=== PATIENT | female | born 1965 | race African-American/Black ===

== ENCOUNTER 2018-06-09 08:00 | Outpatient (CLI) | payer BC ==
[2018-06-09] MEDS ORDERED: CHLOR (13:17)
[2018-06-09] MEDS ORDERED: ATENOL (13:17)
[2018-06-09] MEDS ORDERED: LEVOTHYROXINE125 MCG PO (13:18)
[2018-06-09] MEDS ORDERED: PRAVASTATIN SOD10 MG PO (13:18)
[2018-06-09] MEDS ORDERED: METFORMIN HCL500 M1 PO (13:18)
[2018-06-09] MEDS ORDERED: TRULICITY1.5 MG/0.5 SC (13:18)
[2018-06-09 13:59] LABS: BASOPHILS 0.3 % (0-2); EOSINOPHILS 2.8 % (0-7); HEMATOCRIT 44.1 % (36.0-48.0); HEMOGLOBIN 14.5 g/dL (12-16); IMMATURE GRANULOCYTES 0.1 % (0-5); LYMPHOCYTES 42.4 % (15-50); MCH 28.5 pg (26.0-34.0); MCHC 32.9 g/dL (31.0-37.0); MCV 86.8 fL (80.0-100.0); MEAN PLATELET VOLUME 11.8 fL (7.4-10.4); MONOCYTES 8.1 % (2-11); NEUTROPHILS 46.3 % (40-80); PLATELET COUNT 213 10x3/uL (130-400); RBC 5.08 10x6/uL (4.00-5.40); RDW 12.6 % (11.5-14.5); WBC 6.9 10x3/uL (4.8-10.8)
[2018-06-09 14:23] LABS: CALC OSMOLALITY 277 mosm/kg (275-300); CALCIUM 10.1 mg/dL (8.5-10.1); CARBON DIOXIDE 33.4 mmol/L (21.0-32.0); CHLORIDE - SERUM 100 mmol/L (98-107); CREATININE - SERUM 0.7 mg/dL (0.6-1.3); GLUCOSE 94 mg/dL (74-106); SODIUM 140 mmol/L (136-145); UREA NITROGEN 11 mg/dL (7-18); eGFR NON AFRICAN AMERICAN > 90 mL/min (90-120)
[2018-06-09 14:40] LABS: POTASSIUM - SERUM 2.9 mmol/L (3.5-5.1)
[2018-06-13 18:36] VITALS: BMI 34.4
== END 2018-06-09 08:01 | disposition home or self-care (01) ==
LOC: D.OPS 08:00 → D.PAN 06-11 08:30 → D.OPS 06-11 08:30 → EDSTATUS 06-11 08:30 → D.OPS 06-11 09:00
PROVIDERS: ATTEND Obstetrics & Gynecology
DX: N95.0 Postmenopausal bleeding (principal)

== ENCOUNTER 2018-06-13 14:57 | Inpatient (IN) | payer BC ==
[~2018-06-13] VITALS: Ht 160 cm; Wt 88.2 kg
[2018-06-13 09:39] VITALS: BP 119/73; BMI 34.4
[2018-06-13 09:47] LABS: HCG URINE NEGATIVE (NEGATIVE)
[~2018-06-13 14:57] MED LIST: ATENOL; CHLOR; LEVOTHYROXINE125 MCG PO; METFORMIN HCL500 M1 PO; PRAVASTATIN SOD10 MG PO; TRULICITY1.5 MG/0.5 SC
[2018-06-13 15:32] VITALS: BP 146/74
--- NOTE | 2018-06-13 15:45 | NUR ---
RECEIVED FROM RECOVERY ROOM VIA GURАННА, PT AWAKE AND ALERT AND IS ABLE TO MOVE SELF TO ROOM BED WITH NO ASSISTANCE NEEDED. POSITION TO RIGHT TILT FOR COMFORT, IVORY CATH TO BEDSIDE DRAIN WITH 200ML CLEAR URINE NOTED. IV TO LEFT AC INFUSING LR PER ORDERS. ABDOMEN SOFT TO TOUCH, VAG PACK IN PLACE WITH NO BLEEDING NOTED. SCD'S BILAT AND PLACED ON PUMP. DENIES NAUSEA AND RATES PAIN AT 2/10 AT THIS TIME. SIDE RAILS UP X 2 WITH CALL LIGHT IN REACH.
--- NOTE | 2018-06-13 16:00 | NUR ---
IV ALARMING DUE TO PT POSITION, TUBING ADJUSTED. EXPLAINED TO PT THAT PAIN MED AVAILABLE WHEN NEEDED, SHE RATES PAIN AT 4-5/10 AND REQUEST SOMETHING NOW. MED GIVEN SCANNED TO EMAR. ALSO PROVIDED WITH SMALL LEMON HOLY CROSS SODA AND JELLO.
--- NOTE | 2018-06-13 16:45 | NUR ---
PAIN REASSESSMENT, PT RATES AT 210, LIGHTS TURNED OFF PER REQUEST. SIDE RAILS UP X 2 WITH CALL LIGHT IN REACH.
--- NOTE | 2018-06-13 17:30 | NUR ---
PT TAKEN JELLO AND CUP OF CHICKEN BROTH PER REQUEST. RATES PAIN AT 2/10 AND IS MOVING SELF AROUND IN BED, WITH NO ASSISTANCE NEEDED. IVORY CATH WITH 150ML CLEAR URINE. SIDE RAILS UP X 2 WITH PHONE AND CALL LIGHT IN REACH.
[2018-06-13 18:36] VITALS: BP 134/63; Ht 160 cm; Wt 88.2 kg
--- NOTE | 2018-06-13 19:05 | NUR ---
INTO ROOM TO CHECK IV WITH IS ALARMING. PT. AWAKE AND ORIENTED. RELATES THAT SHE IS THIRSTY. INFORMED OF CHOICES AVAILABLE AND PT. REQUESTED CRANBERRY AND ORANGE JUICE MIXED. SAME GIVEN.
[2018-06-13 19:11] VITALS: BP 109/62
--- NOTE | 2018-06-13 19:11 | NUR ---
PT. AWAKENED FOR VITAL SIGNS AND ASSESSMENT. PT. CURRENTLY WITH CPAP ON WITH HER MACHINE BROUGHT FROM HOME. IV OF NS AT 125CC/HR . IV SITE IN LT AC WITHOUT EDEMA OR REDNESS. INCISION NOTED AT UMBILICUS WITHOUT DRAINAGE. NO VAGINAL DRAINAGE NOTED. SCDS ON AND FUNCTIONAL. IVROY PATENT AND DRAINING WITH 125CC IN URINE METER.
--- NOTE | 2018-06-13 19:30 | NUR ---
IV SALINE LOCKED PER ORDER DR. GONZALEZ. SALINE LOCK FLUSHES WITH EASE.
--- NOTE | 2018-06-13 20:26 | NUR ---
pt. c/o pain of 2 of 10 on pain scale. Percocet given as ordered. Offered pt. popsicle and pt. agreeable.
--- NOTE | 2018-06-13 20:52 | NUR ---
PT. CHANGED POSITION FROM BACK TO LT SIDE WITHOUT ASSISTANCE FROM NURSE. REMINDED PT. TO TRY AND CHANGE POSITIONS EVERY 2 HOURS. PT. STATES UNDERSTANDING. SPOUSE IN ROOM WITH PTKenya MENENDEZ AND DRAINING. SCDS ON AND FUNCTIONAL.
--- NOTE | 2018-06-13 21:17 | NUR ---
PT. LYING ON LT SIDE. SLIGHTLY DROWSY. ROUTINE MEDS GIVEN. REPORTS PAIN IS 0 OF 10.
--- NOTE | 2018-06-13 21:30 | NUR ---
PT. TALKING ABOUT HER WORRIES AT HOME THAT SHE WILL NOT BE ABLE TO DO IE: GROCERY SHOPPING, LAUNDRY ETC AND RELATES THAT HER SONS AND SPOUSE ARE NOT ATTENTIVE TOO. ENCOURAGED PT. TO RESOURCE HER SPIRITISM FAMILY WHEN THEY ASK WHAT THEY CAN DO. PT. AGREEABLE THAT SHE WILL DO THAT. PT. TALKATIVE.
--- NOTE | 2018-06-13 21:51 | NUR ---
INCENTIVE SPIROMETER INTO PT. AND PT. USED AND ABLE TO ACHIEVE UP TO 2000 X2.
--- NOTE | 2018-06-13 22:56 | NUR ---
VISITORS AT BEDSIDE.
[2018-06-13 23:00] VITALS: BP 125/64
--- NOTE | 2018-06-13 23:00 | NUR ---
VISITOR AT BEDSIDE. VITAL SIGNS OBTAINED. IVORY PATENT AND DRAINING. 125CC IN URINE METER. PT. COMMENTING THAT HER MOUTH IS REALLY DRY. SCDS ON AND FUNCTIONAL. PT. MOVING ABOUT IN BED AD IRAM. STATES SHE IS HUNGRY AND READY TO EAT IN THE AM.
--- NOTE | 2018-06-13 23:13 | NUR ---
PT. STATES THAT SHE DESIRES PAIN MED WHEN DUE SO SHE CAN SLEEP. PT. AWARE FROM EARLIER INFORMATION FROM THIS NURSE THAT SHE HAS AMBIEN ORDERED BUT PT. DECLINED. JELLO, JUICE AND WATER SERVED TO PT. PT. STATES THAT SHE TOLD HER SPOUSE AND CHILDREN TO GO HOME SO SHE COULD REST.
--- NOTE | 2018-06-14 00:20 | NUR ---
INTO PT. ROOM TO GIVE PERCOCET THAT PT. HAD REQUESTED "WHEN DUE". PT. WITH CPAP ON AND WITH EYES CLOSED AND RESPIRATIONS UNLABORED. DOES NOT AWAKEN TO THIS NURSE IN ROOM. WILL HOLD PERCOCET AT THIS TIME UNTIL PT. AWAKENS.
--- NOTE | 2018-06-14 01:30 | NUR ---
PT. LYING ON RT SIDE WITH EYES CLOSED AND RESPIRATIONS UNLABORED. IVORY CATH. NOTED WITH 250CC IN FLOW METER. PT. DOES NOT AROUSE TO THIS NURSE IN ROOM. SCDS ON AND FUNCTIONAL.
[2018-06-14 03:24] VITALS: BP 101/59
--- NOTE | 2018-06-14 03:24 | NUR ---
PT. AWAKE AT PRESENT. DENIES ANY PAIN. ENCOURAGED TO DRINK FLUIDS WHILE AWAKE. AGREEABLE. 100CC NOTED IN URINE METER. PT. ASKING WHEN DR. GONZALEZ WILL BE IN. STATES DESIRE TO HAVE VAGINAL PACKING REMOVED AND INQUIRED IF WOULD BE PAINFUL. INFORMED PT. WOULD NOT BE SAME PULLING PACKING FROM ABD. WOUND WHICH PT. STATED THAT SHE WAS FAMILIAR WITH. SCDS ON AND FUNCTIONAL. CALL LIGHT WITHIN REACH. SIDE RAILS UP X2.
--- NOTE | 2018-06-14 04:14 | NUR ---
SCHEDULED TORADOL GIVEN PER ORDER. PT DENIES PAIN AND NEEDS. ICE WATER PROVIDED. SCD'S ON BLE. BED IN LOW POSITION WITH UPPER SIDE RAILS RAISED X2. CALL LIGHT AND PHONE WITHIN REACH. WILL CONTINUE TO MONITOR AND ASSIST PRN.
--- NOTE | 2018-06-14 05:15 | NUR ---
LYING ON BACK WITH CPAP IN PLACE. EYES CLOSED AND RESPIRATIONS UNLABORED.
--- NOTE | 2018-06-14 05:30 | NUR ---
PT. LOOKING AT PHONE. DENIES ANY PAIN AT THIS TIME. SCDS ON AND FUNCTIONAL. IVORY PATENT AND DRAINING.
--- NOTE | 2018-06-14 05:45 | NUR ---
DR. GONZALEZ CALLED UNIT AND INFORMED OF PT'S OUTPUT LAST 4 HOURS.
[2018-06-14 06:00] VITALS: BP 112/58
--- NOTE | 2018-06-14 06:00 | NUR ---
PT. AWAKE AT PRESENT. ASKING IF SHE WILL BE ABLE TO HAVE REGULAR FOOD BEFORE SHE DISCHARGES. INFORMED PT THAT SHE LIKELY WOULD AND THAT DR. GONZALEZ SAID THAT HE WOULD BE IN TO SEE HER THIS AM.
--- NOTE | 2018-06-14 06:15 | NUR ---
PT. REPORTS PAIN OF 4 OF 10 ON PAIN SCALE. STATES IT FEELS LIKE GAS. ICE WATER PROVIDED AND PAIN MED GIVEN ORDERED.
--- NOTE | 2018-06-14 07:55 | NUR ---
TO ROOM TO ANSWER CALL LIGHT. PT UP IN BED WITH BREAKFAST TRAY, REQUEST WASH CLOTH TO WASH HER HANDS, WARM WET CLOTH GIVEN TO PT. PT DENIES ANY FURTHER NEEDS AT THIS TIME. ICE WATER CUP IS FULL.
--- NOTE | 2018-06-14 08:25 | NUR ---
Dr. Monaco to pt's room to speak with pt.
--- NOTE | 2018-06-14 08:40 | NUR ---
AM assessment completed, see flowsheet. Pt has 3 lap incisions, umbilical incision noted to have scant amount of dried blood in it. Abdomen palpates soft, pt reports no nausea at this time. Pt reports she has already passed gas. Medication adm record reviewed with patient. See emar for all meds adm by this RN. SR up x2, call light and phone within reach.
[2018-06-14 08:43] VITALS: BP 110/56
--- NOTE | 2018-06-14 08:53 | OP ---
PATIENT NAME: KAIT SOL MEDICAL RECORD: [id number] :61 LOCATION:[id number] ADMISSION DATE:06/13/18 SURGEON: LAVON GONZALEZ MD DATE OF OPERATION: 06/13/2018 PREOPERATIVE DIAGNOSES: 1. Persistent postmenopausal bleeding. 2. Cystocele. 3. Dyspareunia. POSTOPERATIVE DIAGNOSES: 1. Persistent postmenopausal bleeding. 2. Cystocele. 3. Dyspareunia. PROCEDURES: 1. Total laparoscopic hysterectomy with bilateral salpingo-oophorectomy. 2. Anterior colporrhaphy. SURGEON: Lavon Gonzalez MD BOILERMAKER: Adolfo Pond. ANESTHESIOLOGIST: Dr. Cummins ANESTHETIC: General. FINDINGS: Uterus, tubes, and ovaries unremarkable. The vaginal mucosa is pale. Cervix is unremarkable. First to second degree cystocele present. At the time of cystoscopy, unremarkable mucosa, both ureteral orifices with good efflux of urine. SPECIMENS REMOVED: Uterus with tubes and ovaries bilaterally. SPECIMEN DISPOSITION: Pathology. ESTIMATED BLOOD LOSS: Less than or equal to 200 cc. FLUIDS: 1900 cc lactated Ringer's. URINE OUTPUT: 625 cc of clear urine. DRAINS: Aopbl-ly-tdlshcz with vaginal packing. COMPLICATIONS: None. INDICATIONS: The patient is a 53-year-old female with persistent postmenopausal bleeding. The patient has anterior defect. The patient was consented for total laparoscopic hysterectomy, bilateral salpingo-oophorectomy and anterior colporrhaphy. DESCRIPTION OF PROCEDURE: After informed consent was assured, the patient was taken to the operating room where anesthetic was obtained and she was placed in [facility]. The patient was then prepped and draped in the usual sterile fashion. The patient has a speculum introduced and the uterine manipulator now OPERATIVE REPORT [id number] KAIT SOL placed. Attention was directed to the abdomen where an incision was made and a 5-mm trocar inserted. Pneumoperitoneum was developed and the patient was in Trendelenburg position. Accessory ports were placed in the right and left lower quadrants. Through the right lower quadrant port, Thunderbeat coagulation cutter was inserted. The right tube and ovary were elevated and the infundibulopelvic ligament compressed, coagulated, and . This dissection was carried down underneath the ovary, across the round ligament, and anterior leaf of the broad ligament was opened. The bladder flap was developed across the midline. Posterior leaf was now fully dissected free of the vascular bundle of the right side. The vessels of the right are now compressed, coagulated, and at the level of the internal os. Attention was now directed to the left side. The left ovary was now elevated and in a like manner the tissues compressed, coagulated, and across the infundibulopelvic ligament, round ligaments and broad ligament. The bladder flap was now completely developed. Posteriorly, the tissues dissected free the vascular bundle and the tissue was now compressed, coagulated, and . Dissection of the uterus from the vaginal cuff begins at the 5 o'clock position and was taken up to the 9 o'clock position. The dissection concludes from the right side from the 3-9 o'clock position and 3-6 o'clock positions. The legs were positioned for the vaginal close. The weighted speculum was introduced in the vagina and the cervix, and the uterus, tubes and ovaries were removed. The cuff was now closed in an anterior to posterior fashion with interrupted Vicryl stitch. After this had been completed, Allis clamp was placed approximately 1.5 cm from the urethral meatus. Another clamp was applied at the apex of the anterior defect. The anterior compartment was injected with 0.5% lidocaine solution with epinephrine. The space was opened with a #10 blade and the dermis mobilized off of the underlying endopelvic fascia. Imbricating Vicryl stitches were now used to repair the anterior compartment defect. After single layer close of the Vicryl, mucosa was trimmed and closed with a running stitch. Vaginal packing was placed after cystoscopy was performed. The second look with the laparoscope revealed adequate hemostasis. The pelvis was copiously irrigated and irrigant removed. Accessory trocars were removed under direct visualization and then primary trocar removed. Subcuticular stitch was used to reapproximate the skin and Dermabond was applied. Sponge, lap, and needle counts correct times 2. TRANSINT:[id number] Voice Confirmation ID: [id number] DOCUMENT ID: [id number] LAVON GONZALEZ MD at 0853 CC: [id number] DICTATION DATE: 06/13/18 1425 ONCOLOGY REP: 06/13/18 [id number] ADM IN [facility] [address] [id number]
--- NOTE | 2018-06-14 08:55 | NUR ---
Dr. Monaco on unit, and notified of pt's HR 49, 51 while lying in bed before sitting up. Will recheck HR.
--- NOTE | 2018-06-14 09:38 | NUR ---
Dr. Monaco at [facility]. HR reported to . Pt continues to deny SOB, nausea, dizziness or difficulty breathing. No new orders received.
--- NOTE | 2018-06-14 12:15 | NUR ---
To pt's room to remove crockett and vag packing. Crockett cath removed with tip intact, total of 700 ml's dark yellow urine noted. Vaginal packing removed slowly with dark brown/dark red, dry packing noted when removal began. At tail end of packing, watery/serous fluid noted with no foul odor, and no bright red blood noted. Pt bernabe well. Pericare done with warm wet washcloths, and peritowel changed. Pt wishes to eat lunch at this time. SR up x2, call light and phone within reach.
--- NOTE | 2018-06-14 14:35 | NUR ---
Pt requests to take a shower, clean linens provided, along with peripanties, and peripads. Baby shampoo/body wash provided at pt's request. Pt sitting on toilet, attempting to void, [place] hat provided. Warm wet washcloths proivided for pericare. Pt denies all other needs at this time. Call light within reach.
--- NOTE | 2018-06-14 15:00 | NUR ---
Pt out of shower, states "I was unable to void". Pt has large ice water to drink. Pt dressed in own clothing, preparing for discharge. SR up x 2, call light and phone within reach. Pt denies all other needs at this time.
--- NOTE | 2018-06-14 15:30 | NUR ---
Nghia Prasad, RN to room, saline lock dc'd with cath intact. Pt bernabe well. SRup x 2, call light and phone within reach. Pt denies all other needs.
[2018-06-14] MEDS ORDERED: TORADOL10 MG PO (15:44)
[2018-06-14] MEDS ORDERED: CELEXA20 MG PO (15:45)
[2018-06-14] MEDS ORDERED: PERCOCET 7.5/321 TAB PO (16:29)
--- NOTE | 2018-06-14 16:55 | NUR ---
Report given to 7 p shift.
--- NOTE | 2018-06-14 17:00 | NUR ---
Regular supper tray served by dietary. Medication adm record reviewed with patient, pt stating "I usually take my nighttime glucophage at around 9 pm, so I will wait to take it then". Pt requests to have bladder scanned, due to she has not voided post crockett cath removed. Bladder scanned x 2, with 129 ml's noted on scanner. Pt wishes to drink more for now, and will attempt to void by 6 pm. Large cranberry juice and sprite served to pt at her request.
--- NOTE | 2018-06-14 17:30 | NUR ---
Report called to Dr. Monaco by Nghia Prasad, RN and Informed MD time of crockett removed, and pt unable to void, with 129 ml's noted with bladder scanner. Telephone order received to drain bladder with in and out catheter, and then give 3-4 hours to void after cath, and to administer Urecholine one po q 8 hrs.
--- NOTE | 2018-06-14 17:40 | NUR ---
supervisor net making notified of needing Urecholine tablet to administer to Joselo.
--- NOTE | 2018-06-14 18:25 | NUR ---
In and out cath done using sterile technique, with 550 ml's yellow urine out. Urine specimen collected in case ordered by . Peripad placed and pt dressed in own clothing, plan of care discussed with pt. Pt agrees with plan of care. Sr up x 2, call light and phone within reach.
--- NOTE | 2018-06-14 18:30 | NUR ---
edson Markhamhousehold cook calls to unit and states "The pharmacist said we do not carry Urecholine. Dr. Monaco notified by Nghia Prasad RN of this, with new order received to administer Reglan 10 mg one po Q6 hrs.
--- NOTE | 2018-06-14 19:52 | NUR ---
pt given reglan 10mg po.
--- NOTE | 2018-06-14 20:26 | NUR ---
SPOKE WITH DR. GONZALEZ, INFORMED MD THAT PT HAD BEEN I&O CATHED BY DAY SHIFT AT 1825 PER REPORT WITH OUTPUT OF 550 MLS. ORDER REC'D THAT IF PT HASN'T VOIDED BY [address] IVORY CATH.
[2018-06-14 21:00] VITALS: BP 116/55
--- NOTE | 2018-06-14 21:11 | NUR ---
PT. LYING ON BED DRESSED IN HER OWN CLOTHES. BREATH SOUNDS CLEAR AND BOWEL SOUNDS HYPOACTIVE. DENIES ANY PAIN IN LEGS AND NO REDNESS NOTED. PT. REPORTS THAT SHE FEELS SHE HAS GAS. STATES SHE HASN'T WALKED MUCH TODAY AND IS AWARE THAT SHE NEEDS TO. DENIES PAIN AT THIS TIME. PT. STATES SHE HAS BEEN UNABLE TO VOID BUT DESIRES TO SO SHE CAN GO HOME. INFORMED OF POC THAT IF UNABLE TO VOID BY 10:30 PM THAT CATH. WOULD BE REINSERTED UNTIL AM AND THEN WOULD BE TAKEN OUT AGAIN. PT. STATES UNDERSTANDING. ABD INCISION AT UMBILICUS CLEAN AND WITHOUT DRAINAGE. NO VAGINAL DISCHARGE NOTED. PT. STATES SHE IS GETTING UP TO WALK.
--- NOTE | 2018-06-14 21:18 | NUR ---
PT. REPORTS THAT SHE HAS NOT DRANK MUCH SINCE LAST TIME CATH. WAS DONE. ICE WATER PROVIDED TO PT. PT. UP TO BATHROOM TO ATTEMPT TO VOID. STATES SHE FEELS ALMOST LIKE URINE IS COMING AND THEN WILL NOT.
--- NOTE | 2018-06-14 21:25 | NUR ---
PT. WALKING IN HALLWAY WITH MALE. GAIT STEADY.
--- NOTE | 2018-06-14 21:36 | NUR ---
house supervisior notified of pt need for simethicone 80mg po.
--- NOTE | 2018-06-14 22:01 | NUR ---
simethicone 80 mg given po for releif of gas. pt alert and laying in bed.
--- NOTE | 2018-06-14 22:32 | NUR ---
PT. REQUESTING IVORY BE INSERTED. STATES SHE HAS ATTEMPTED TO VOID AND IS UNABLE BUT FEELS HER BLADDER IS FULL. ASKED FOR GOWN TO CHANGE OUT OF HER STREET CLOTHES. SAME DONE.
--- NOTE | 2018-06-14 22:40 | NUR ---
16 F IVORY CATH.INSERTED PER HOSPITAL POLICY WITH IMMED. RETURN OF 500CC NOTED. PT. REPORTS FEELING OF RELIEF WHEN BLADDER EMPTIED. PT. SITTING UP EATING FOOD BROUGHT FROM OUTSIDE. SCDS ON AND CONNECTED TO PUMP AND FUNCTIONAL.
--- NOTE | 2018-06-14 22:43 | NUR ---
TORADOL GIVEN ORDERED. DENIES PAIN AT THIS TIME.
[2018-06-14 23:30] VITALS: BP 114/65
--- NOTE | 2018-06-14 23:30 | NUR ---
v/s obtained at this time. temp 98.0(ax), hr-62, resp-24 and unlabored. pt laying in bed with lights out. pt has no c/o at this time.
--- NOTE | 2018-06-15 00:20 | NUR ---
PT. LYING ON BACK WITH EYES CLOSED. RESPIRATIONS UNLABORED. IVORY PATENT AND DRAINING. SCDS ON AND FUNCTIONAL. SIDE RAILS UP X 2.
--- NOTE | 2018-06-15 02:10 | NUR ---
INTO ROOM FOR CHECK ON PT. PT. AWAKE AT PRESENT. REQUESTING SIMETHICONE FOR GAS. INFORMED WOULD REQUEST FROM STRAND AND BINDER CONTROLLER. IVORY PATENT AND DRAINING. REPOSITIONED SELF TO RT SIDE.
--- NOTE | 2018-06-15 02:13 | NUR ---
GAME DESIGNER/CREATIVE DIRECTOR CALLED FOR MASONE.
--- NOTE | 2018-06-15 02:19 | NUR ---
REGLAN GIVEN ORDERED . INFORMED EMERGENCY ROOM CLERK WILL BRING LORI. PT. CURRENTLY LOOKING ON PHONE.
[2018-06-15 04:30] VITALS: BP 113/54
--- NOTE | 2018-06-15 04:30 | NUR ---
PT LAYING IN BED ON LEFT SIDE. PT AROUSED EASILY WHEN DOOR OPENED. V/S OBTAINED. TEMP 97.9(AX), RESP-18, HR-77, TORADOL 10MG GIVEN PO. PT DENIES ANY NEEDS OR CONCERNS AT PRESENT TIME.
--- NOTE | 2018-06-15 05:24 | NUR ---
LYING ON LT SIDE WITH CPAP IN PLACE. RESPIRATIONS UNLABORED.
--- NOTE | 2018-06-15 06:14 | NUR ---
PT. WALKING ABOUT IN ROOM. EMPTIED IVORY WITH 1500CC. DENIES ANY NEEDS. GAIT STEADY.
--- NOTE | 2018-06-15 08:00 | NUR ---
AM ASSESSMENT COMPLETED, SEE FLOWSHEET. ABDOMEN PALPATES SOFT, PT WITH 3 LAP INCISIONS, C/D/I. PT HAS IVORY CATH IN PLACE DRAINING DARK YELLOW URINE, WITH 130 ML'S NOTED IN UROMETER. PT STATES SHE IS PASSING GAS. PT DENIES NAUSEA, DIZZINESS, SOB, OR DIFFICULTY BREATHING. REGULAR BREAKFAST TRAY SERVED BY DIETARY. PT DENIES NEEDING ANYTHING ELSE FOR BREAKFAST OR TO DRINK. SR UP X2, CALL LIGHT AND PHONE WITHIN REACH.
[2018-06-15 08:09] VITALS: BP 121/60
--- NOTE | 2018-06-15 08:10 | NUR ---
SEE EMAR FOR MEDS ADM BY THIS RN.
--- NOTE | 2018-06-15 09:20 | NUR ---
DR. GONZALEZ CALLS TO UNIT, STATES HE WILL BE BY SHORTLY FOR ROUNDS.
--- NOTE | 2018-06-15 10:15 | NUR ---
DR. GONZALEZ ON UNIT, ROUNDS MADE.
--- NOTE | 2018-06-15 11:30 | NUR ---
TO PT'S ROOM TO GO OVER DISCHARGE PAPERS, AND TO SWITCH IVORY BAG TO LEG BAG. PT WISHES TO TAKE A SHOWER FIRST. IVORY BAG EMPTIED WITH 400 MLS DARK YELLOW URINE OUT. CLEAN LINENS PROVIDED. PT DENIES ALL OTHER NEEDS AT THIS TIME.
--- NOTE | 2018-06-15 12:20 | NUR ---
PT CALLS OUT GLOBAL PROCESS OWNER LIGHT AND STATES "I AM READY TO GO HOME". TO PT'S ROOM, PT HAS CHANGED OUT IVORY BAG TO LEG BAG, CORRECTLY DONE. EXTRA IVORY BAG SENT HOME WITH PATIENT. DISCHARGE INSTRUCTIONS EXPLAINED TO PT, WITH COPIES PROVIDED, ALONG WITH APPT CARD, HOME MED REC, AND EDUCATIONAL INFORMATION SHEETS, AND PRESCRIPTIONS FOR MACROBID, AND UROCHOLINE. PT'S TOOK PERCOCET, CELEXA, AND TORADOL SCRIPTS YESTERDAY TO GET THEM FILLED, IN ANTICIPATION OF D/C YESTERDAY. DR. GONZALEZ WANTS TO SEE PT IN CLINIC AFTER TAKING THE UROCHOLINE FOR 24 HOURS. PT AGREES TO DISCHARGE INSTRUCTIONS. DENIES QUESTIONS. REGULAR LUNCH TRAY SERVED BY DIETARY. PT WANTS TO EAT BEFORE SHE DISCHARGES HOME. PT IS DRESSED AND READY FOR D/C.
--- NOTE | 2018-06-15 12:35 | NUR ---
PT TAKEN OUT IN STABLE CONDITION BY WHEELCHAIR TO PRIVATE CAR, WITH FRIEND DRIVING.
--- NOTE | 2018-06-16 03:49 | DS ---
PATIENT:KAIT SOL :61 MEDICAL RECORD: [id number] DISCHARGE SUMMARY ADMISSION DATE: 06/13/18 DISCHARGE DATE: 06/15/18 DATE OF ADMISSION: 06/13/2018 DATE OF DISCHARGE: 06/15/2018 ADMISSION DIAGNOSES: 1. Persistent postmenopausal bleeding. 2. Cystocele. DISCHARGE DIAGNOSES: 1. Persistent postmenopausal bleeding. 2. Cystocele. 3. Urinary retention, status post total laparoscopic hysterectomy-bilateral salpingo-oophorectomy with anterior repair. ATTENDING: Contreras Gonzalez MD PROCEDURES: 1. Total laparoscopic hysterectomy. 2. Bilateral salpingo-oophorectomy. 3. Anterior colporrhaphy. HISTORY OF PRESENT ILLNESS AND INDICATIONS FOR PROCEDURE: See the H&P in the chart. SUMMARY OF HOSPITALIZATION: The patient was admitted and underwent the procedure without difficulty. By postop day #1, she was tolerating a regular diet and having voiding difficulties. The patient had 2 postvoid residuals in excess of 100 cc over a 4-hour period of time for each. The patient has been on Reglan overnight; however, chooses to go home with a leg bag until Urecholine can to be taken for 24 hours. DISCHARGE MEDICATIONS: Will include Macrobid, Urecholine, Percocet, and Toradol. The patient will follow up in the clinic for Falk removal. Standard postoperative precautions have been reviewed. TRANSINT:[id number] Voice Confirmation ID: [id number] DOCUMENT ID: [id number] CONTRERAS GONZALEZ MD at 0349 CC: [id number] DICTATION DATE: 06/15/18 1031 HOTEL CONCIERGE: 06/16/18 0031 DIS IN 06/15/18 [facility] [address] [place] [address]
== END 2018-06-15 12:35 | disposition home or self-care (01) | DRG 743 ==
LOC: D.OPS 14:57 → D.LD 14:58 → D.OPS 23:46 → D.LD 23:46
PROVIDERS: ADMIT Obstetrics & Gynecology; ATTEND Obstetrics & Gynecology
PROC: 0UT9FZZ Resection of Uterus, Via Natural or Artificial Opening With Percutaneous Endoscopic Assistance (ICD-10-PCS; principal; 2018-06-13 10:45)
PROC: 0UT7FZZ Resection of Bilateral Fallopian Tubes, Via Natural or Artificial Opening With Percutaneous Endoscopic Assistance (ICD-10-PCS; 2018-06-13 10:45)
PROC: 0UT2FZZ Resection of Bilateral Ovaries, Via Natural or Artificial Opening With Percutaneous Endoscopic Assistance (ICD-10-PCS; 2018-06-13 10:45)
PROC: 0JQC3ZZ Repair Pelvic Region Subcutaneous Tissue and Fascia, Percutaneous Approach (ICD-10-PCS; 2018-06-13 10:45)
DX: N95.0 Postmenopausal bleeding (principal); N81.10 Cystocele, unspecified; N94.10 Unspecified dyspareunia; R33.8 Other retention of urine

== ENCOUNTER 2018-06-24 19:08 | Emergency (ER) | payer BC ==
[~2018-06-24] VITALS: Ht 160 cm; Wt 86.4 kg
[~2018-06-24 19:08] MED LIST changes: +CELEXA20 MG PO; +PERCOCET 7.5/321 TAB PO; +TORADOL10 MG PO
== END 2018-06-24 20:40 | disposition home or self-care (01) ==
LOC: D.ER 19:08
DX: R33.8 Other retention of urine (principal)

== ENCOUNTER 2018-07-01 08:27 | Day surgery (SDC) | payer BC ==
[~2018-07-01] VITALS: Ht 160 cm; Wt 86.2 kg
[~2018-07-01 08:27] MED LIST changes: +MACROBID100 MG PO; +OXYBUTYNIN CHLOR5 M1; +URECHOLINE25 MG
[2018-07-01 08:56] LABS: HEMATOCRIT 40.2 % (36.0-48.0); HEMOGLOBIN 13.2 g/dL (12-16); MCH 28.4 pg (26.0-34.0); MCHC 32.8 g/dL (31.0-37.0); MCV 86.5 fL (80.0-100.0); MEAN PLATELET VOLUME 11.5 fL (7.4-10.4); RBC 4.65 10x6/uL (4.00-5.40); RDW 12.8 % (11.5-14.5); WBC 6.6 10x3/uL (4.8-10.8)
[2018-07-01 09:03] LABS: CALC OSMOLALITY 286 mosm/kg (275-300); CALCIUM 9.8 mg/dL (8.5-10.1); CARBON DIOXIDE 30.8 mmol/L (21.0-32.0); CHLORIDE - SERUM 103 mmol/L (98-107); CREATININE - SERUM 0.7 mg/dL (0.6-1.3); POTASSIUM - SERUM 3.1 mmol/L (3.5-5.1); SODIUM 143 mmol/L (136-145); UREA NITROGEN 10 mg/dL (7-18); eGFR NON AFRICAN AMERICAN > 90 mL/min (90-120)
[2018-07-01 09:04] LABS: GLUCOSE 160 mg/dL (74-106)
[2018-07-01] MEDS ORDERED: GLIMEPIRIDE1 MG PO (10:33)
[2018-07-01 10:37] VITALS: BP 138/92; Ht 160 cm; Wt 86.2 kg
--- NOTE | 2018-07-01 12:51 | OP ---
PATIENT NAME: KAIT SOL MEDICAL RECORD: [id number] :61 LOCATION:D.OPS ADMISSION DATE: SURGEON: EMMANUEL PORTER MD DATE OF OPERATION: 07/01/2018 SURGEON: Emmanuel Porter MD ANESTHESIA: TIVA By Cristian Mathias CRNA DIAGNOSES: Urinary retention post-hysterectomy and cystocele repair. FINDINGS: Normal urethra without obstruction. Single ureteral orifices bilaterally. Diffuse bladder inflammation, but no bladder tumors are seen. PROCEDURE: Cystoscopy. BLOOD LOSS: None. CLINICAL HISTORY: This is a 53-year-old female who had some issues with voiding prior to hysterectomy and cystocele repair by Dr. Lavon Monaco. Subsequently, she has been in urinary retention. She performs self-intermittent catheterization several times a day. When I saw her in the office, she had a high postvoid residual. I encouraged her to continue with self-intermittent catheterization. The patient was offered the InterStim bladder pacemaker to try to restart her spontaneous voiding. She wanted to have cystoscopy first to be sure that there was no obstruction of the urethra from her surgery. SHE IS ALLERGIC TO BACTRIM AND CIPRO. We gave her IV Ancef on-call to the OR. DESCRIPTION OF PROCEDURE: The patient was given IV sedation. She was then placed into lithotomy position. We then prepped and draped her. A 17-Croatian cystoscope with 30-degree lens was used for visualization. The findings are as outlined above. There is a slight injury to the urethral mucosa from a traumatic attempt at self-catheterization. Otherwise, the bladder shows some diffuse inflammation, which may be suggestive of interstitial cystitis. However, she has single ureteral orifices bilaterally without any bladder tumors. There is no obstruction of the urethra. The bladder was emptied through the cystoscope sheath and the scope was removed. I will see the patient again in followup and discuss the InterStim bladder pacemaker with her. TRANSINT:[id number] Voice Confirmation ID: [id number] DOCUMENT ID: [id number] EMMANUEL PORTER MD at 1251 CC: [id number] DICTATION DATE: 07/01/18 1148 BUNCH MAKER: 07/01/18 1231 REG [facility] [address] [place] [address]
--- NOTE | 2018-07-01 15:43 | NUR ---
[address] PORTER. PROCEDURE FINDINGS DISCUSSED WITH PT. PT FRANKIE. SERVED FULL LIQUID DIET. FAMILY @ BEDSIDE. Aide NOGUERA R.N.
--- NOTE | 2018-07-01 15:54 | NUR ---
1305 AWAKE & ALERT, DRESSED. GIVEN DISCHARGE INSTRUCTIONS INCLUDING: MED REC, RTC APPT., [facility] D/C INSTRUCTIONS, CYSTOSCOPY D/C INSTRUCTIONS. PT ADVISED DR. PORTER SAID TO CONTINUE TO SELF CATH NEEDED. PT VOICED UNDERSTANDING. TO PRIVATE CAR PER WHEELCHAIR BY VOLUNTEER. HOME WITH SONS. Aide NOGUERA R.N.
== END 2018-07-01 13:05 | disposition home or self-care (01) ==
LOC: D.OPS 08:27
PROVIDERS: Anesthesiology; ATTEND Urology
DX: R33.9 Retention of urine, unspecified (principal); N30.90 Cystitis, unspecified without hematuria; Z90.710 Acquired absence of both cervix and uterus; Z88.1 Allergy status to other antibiotic agents; Z01.812 Encounter for preprocedural laboratory examination

== ENCOUNTER → 2018-07-09 18:28 | Outpatient (CLI) | payer SELFPAY ==
[2018-07-01 10:37] VITALS: BMI 33.7
[~2018-07-09 18:28] MED LIST changes: +GLIMEPIRIDE1 MG PO
== END | disposition home or self-care (01) ==
LOC: D.LABREF 18:28
PROVIDERS: ATTEND Urology
DX: N39.0 Urinary tract infection, site not specified (principal)

== ENCOUNTER → 2018-07-22 13:26 | Outpatient (CLI) | payer MEDICARE ==
[2018-07-01 10:37] VITALS: BMI 33.7
== END | disposition home or self-care (01) ==
LOC: D.LABREF 13:26
PROVIDERS: ATTEND Urology
DX: D72.829 Elevated white blood cell count, unspecified (principal); R31.9 Hematuria, unspecified